=== PATIENT | female | born 1950 | race Hispanic/Latino ===

== ENCOUNTER 2022-03-09 18:26 | Emergency (ER) | payer OTHER, SELFPAY ==
[2022-03-09 19:26] LABS: MEAN CORPUSCULAR HEMOGLOBIN 27.1 pg (27.0-33.0); MEAN CORPUSCULAR HGB CONC 33.1 g/dL (32.0-36.0); MEAN CORPUSCULAR VOLUME 81.9 fL (79-99); PLATELET COUNT (AUTO) 229 K/uL (130-400); RED BLOOD CELL COUNT(AUTO) 4.76 MIL/uL (4.00-5.50); RED CELL DISTRIBUTION WIDTH 14.2 % (11.0-15.5); WHITE BLOOD COUNT (AUTO) 9.8 K/uL (4.8-10.8)
[2022-03-09 19:33] LABS: CREATININE 0.8 mg/dL (0.5-1.5); POTASSIUM 3.5 mmol/L (3.5-5.1)
[2022-03-09 19:37] LABS: ALBUMIN 3.6 g/dL (3.5-5.0); TOTAL PROTEIN, SERUM 7.2 g/dL (6.0-8.3)
[2022-03-09 19:56] LABS: BASOPHILS % (AUTO) 0.4 % (0.0-5.0); EOSINOPHILS % (AUTO) 0.4 % (0.0-8.0); LYMPHOCYTES % (AUTO) 11.2 % (21.0-51.0); MONOCYTES % (AUTO) 5.5 % (3.0-13.0)
[2022-03-09 20:14] LABS: APPEARANCE,URINE CLOUDY (CLEAR); BILIRUBIN,URINE NEGATIVE (NEGATIVE); COLOR,URINE LIGHT-YELLOW (YELLOW); GLUCOSE, URINE (UA) NEGATIVE (NEGATIVE); KETONES,URINE 10 mg/dL (NEGATIVE); LEUKOCYTE ESTERASE ,URINE NEGATIVE Leu/uL (NEGATIVE); NITRATE,URINE NEGATIVE (NEGATIVE); OCCULT BLOOD,URINE NEGATIVE (NEGATIVE); PROTEIN,URINE NEGATIVE (NEGATIVE); UROBILINOGEN,URINE 0.2 mg/dL (0.2-1.0)
[2022-03-09 20:25] LABS: BACTERIA,URINE RARE /HPF (None Seen); MUCUS,URINE RARE LPF (None Seen); SQUAMOUS EPITHELIAL CELL,UR RARE /HPF (0-2)
[2022-03-09] MEDS ORDERED: ONDANSETRON 4MG INJ IVP ONE (20:30)
[2022-03-09] MEDS ORDERED: FAMOTIDINE 20MG VIAL IV ONE (20:30)
[2022-03-09] MEDS ORDERED: 0.9% NACL 500ML IV.SOLN 500 ML IV ONE (20:30)
[2022-03-09] MEDS ORDERED: MECLIZINE HCL 25 MG TABLET PO ONE (20:30)
[2022-03-09] MEDS ORDERED: SOLU-MEDROL 125MG VIAL IVP ONE (21:30)
[2022-03-09] MEDS ORDERED: MECL-160 PO (22:06)
[2022-03-09] MEDS ORDERED: ONDA4TAB10 PO (22:06)
[2022-03-09 22:20] VITALS: BP 145/70
== END 2022-03-09 22:29 | disposition home or self-care (01) ==
LOC: EDH 18:26
DX: H81.10 Benign paroxysmal vertigo, unspecified ear (principal); R11.2 Nausea with vomiting, unspecified; I10 Essential (primary) hypertension; Z90.49 Acquired absence of other specified parts of digestive tract
CPT/HCPCS: 99285; 96374; 70450; 96375; 83735; 80053; 83690; 85025; 87088; 81001; 36415; 93005; J7040; J3490; J2930; J2405; 96361